=== PATIENT | male | born 1955 | race Two or more races ===

== ENCOUNTER 2024-10-23 05:56 | Day surgery (SDC) | payer MEDICARE, BC, SELFPAY ==
[2024-09-27 11:32] LABS: Hematocrit 41.3 % (39.0-52.0); Hemoglobin 13.9 g/dL (13.0-18.0); Mean Corp Hgb Conc. 33.7 g/dL (33.0-37.0); Mean Corpuscular Hgb 29.3 pg (27.0-31.0); Mean Corpuscular Volume 86.9 fL (80.0-94.0); Mean Platelet Volume 10.4 fL (7.4-10.4); Platelet Count 167 10^3/uL (130-400); Red Blood Cell Count 4.75 10^6/uL (4.70-6.10); Red Cell Dist. Width 14.5 % (11.5-14.5); White Blood Cell Count 4.7 10^3/uL (4.8-10.8)
[2024-09-27 11:50] LABS: ALT (SGPT) 29 U/L (0-50); AST (SGOT) 32 U/L (17-59); Albumin 4.6 g/dl (3.5-5.0); Alkaline Phosphatase 69 U/L (38-126); Blood Urea Nitrogen 21 mg/dl (9-20); Calcium 9.9 mg/dl (8.4-10.2); Carbon Dioxide 29 mmol/L (22-30); Chloride 100 mmol/L (98-107); Glucose 84 mg/dl (70-99); Potassium 4.2 mmol/L (3.5-5.1); Sodium 138 mmol/L (135-145); Total Bilirubin 1.7 mg/dl (0.2-1.3); Total Protein 7.6 g/dl (6.3-8.2); eGFR > 60.00
[2024-09-27 13:04] LABS: Glycohemoglobin (HgbA1c) 5.5 % (4.0-5.6)
[2024-09-27 14:18] VITALS: BMI 31.0
--- NOTE | 2024-10-10 11:37 | VNURNOTE ---
Patient is scheduled for an elective R TKR on 10/23/24- he is a same day patient with Dr Francois. Spoke with patient prior to surgery. Introduced role of [facility] Liaison. Patient reports that he lives with his in a MULTI story home.
There are 6 steps to enter.
He has an ice gel pack, cane and rolling walker.
PCP is Dr Miky Alberto
Discussed [facility] joint protocol and post surgical plans.
Reviewed that he will have [facility] services initially and will then start outpatient PT.
Patient selects [facility] for his home care needs and will go to ' Ortho on [address]' for outpatient PT. Scheduled for 10/26
Patient is in agreement with plan and states that his will be home with him. Advised to bring RW with him day of surgery. Pet policy reviewed, he has a small dog at home. [facility] referral placed in [facility].
Plan: [facility] per [facility] joint protocol 10/23 then outpt PT on 10/26
[2024-10-17 10:39] VITALS: BMI 31.0
[2024-10-23] VITALS (10 sets, daily range): BP systolic 106–158; BP diastolic 74–93; PULSE 72; O2SAT 98
[2024-10-23] MEDS: CELEBREX 200 MG PO (06:21)
[2024-10-23] MEDS: TYLENOL 650 MG PO (06:21)
[2024-10-23] MEDS: NORMOSOL-R/PLASMALYTE-A 1000 IV (06:38)
[2024-10-23] MEDS: BACTROBAN NASAL 1 GRAM NASAL (06:40)
--- NOTE | 2024-10-23 06:50 | W.DS.TRANS ---
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
-
Discharge Instructions:
Sleep Apnea Risk Intermediate
Discharge Diagnosis/Procedures R TKA 10/23/24
Diet As tolerated
Activity With Walker
Driving Restrictions No driving
Bathing Restrictions OK to Shower
Other Services PT
Instructions:
Stand-Alone Forms: [facility] Total Hip and Knee D/C
Changes to Home Medications: Yes
Discharge Medications:
DC Medications w/original date entered in [employer]
atorvastatin 10 mg tablet 10 mg PO DAILY 09/26/24
losartan 50 mg-hydrochlorothiazide 12.5 mg tablet 1 tab PO DAILY 09/26/24
omeprazole 40 mg capsule,delayed release 40 mg PO DAILY 09/26/24
timolol maleate 0.5 % eye drops 1 drp LEFT EYE BID 09/26/24
celecoxib 200 mg capsule (Celebrex) 200 mg PO DAILY #14 caps 09/27/24
dexamethasone 4 mg tablet 4 mg PO BID Anti-inflammatory #7 tabs 09/27/24
mupirocin 2 % topical ointment 1 applic intranasal BID #1 tube 09/27/24
ondansetron HCl 4 mg tablet 4 mg PO Q6H PRN nausea and vomiting #30 tabs 09/27/24
oxycodone 5 mg tablet 5 - 10 mg (1 - 2 x 5 mg) PO Q6H PRN moderate-severe pain #30 tabs 09/27/24
acetaminophen 325 mg tablet (Tylenol) 650 mg (2 x 325 mg) PO QID #1 tab 10/23/24
aspirin 325 mg tablet 325 mg PO DAILY blood clot prevention #1 tab 10/23/24
docusate sodium 100 mg capsule (Colace) 100 mg PO BID stool softner #1 cap 10/23/24
magnesium hydroxide 400 mg/5 mL oral suspension (Milk of Magnesia) 30 ml PO HS PRN Constipation #1 mL 10/23/24
sennosides 8.6 mg tablet (Senokot) 17.2 mg (2 x 8.6 mg) PO BID laxative #2 tabs 10/23/24
Home Medication Changes
celecoxib 200 mg capsule (Celebrex) 200 mg PO DAILY #14 caps 09/27/24
dexamethasone 4 mg tablet 4 mg PO BID Anti-inflammatory #7 tabs 09/27/24
mupirocin 2 % topical ointment 1 applic intranasal BID #1 tube 09/27/24
ondansetron HCl 4 mg tablet 4 mg PO Q6H PRN nausea and vomiting #30 tabs 09/27/24
oxycodone 5 mg tablet 5 - 10 mg (1 - 2 x 5 mg) PO Q6H PRN moderate-severe pain #30 tabs 09/27/24
acetaminophen 325 mg tablet (Tylenol) 650 mg (2 x 325 mg) PO QID #1 tab 10/23/24
aspirin 325 mg tablet 325 mg PO DAILY blood clot prevention #1 tab 10/23/24
docusate sodium 100 mg capsule (Colace) 100 mg PO BID stool softner #1 cap 10/23/24
magnesium hydroxide 400 mg/5 mL oral suspension (Milk of Magnesia) 30 ml PO HS PRN Constipation #1 mL 10/23/24
sennosides 8.6 mg tablet (Senokot) 17.2 mg (2 x 8.6 mg) PO BID laxative #2 tabs 10/23/24
Pending Results: No
[2024-10-23] MEDS: ROXICODONE 5 MG PO (10:59)
[2024-10-23] MEDS: ANCEF 5 IV (11:00)
== END 2024-10-23 11:55 | disposition home or self-care (01) ==
LOC: SDS 05:56
PROVIDERS: ATTENDING PHYSICIAN Specialist; FAMILY PHYSICIAN Family Medicine; OTHER PHYSICIAN Physician Assistant
DX: M17.11 Unilateral primary osteoarthritis, right knee (principal); G62.9 Polyneuropathy, unspecified; E66.9 Obesity, unspecified; Z68.31 Body mass index [BMI] 31.0-31.9, adult
CPT/HCPCS: 27447; 36415; 73560; 80053; 83036; 85027; 87070; 93005; 97116; 97162; C1713; C1776

== ENCOUNTER → 2024-12-08 13:16 | Outpatient (REF) | payer MEDICARE, BC, SELFPAY ==
[2024-12-08 14:13] LABS: % Basophils 0.6 % (0-2); % Eosinophils 2.5 % (0-6); % Immature Granulocytes 0.2 % (0-0.5); % Lymphocytes 31.7 % (20.5-51.1); % Monocytes 9.3 % (1.7-9.3); % Neutrophils 55.7 % (42.2-75.2); Absolute Eosinophils 0.1 10^3/uL (0-0.7); Absolute Lymphocytes 1.6 10^3/uL (1.2-3.4); Absolute Monocytes 0.5 10^3/uL (0.1-0.6); Absolute Neutrophils 2.9 10^3/uL (1.4-6.5); Hematocrit 38.3 % (39.0-52.0); Hemoglobin 13.3 g/dL (13.0-18.0); Mean Corp Hgb Conc. 34.7 g/dL (33.0-37.0); Mean Corpuscular Hgb 29.8 pg (27.0-31.0); Mean Corpuscular Volume 85.9 fL (80.0-94.0); Mean Platelet Volume 9.9 fL (7.4-10.4); Nucleated Red Blood Cells % 0 % (-); Platelet Count 184 10^3/uL (130-400); Red Blood Cell Count 4.46 10^6/uL (4.70-6.10); Red Cell Dist. Width 12.8 % (11.5-14.5); White Blood Cell Count 5.2 10^3/uL (4.8-10.8)
[2024-12-08 14:35] LABS: Blood Urea Nitrogen 25 mg/dl (9-20); Calcium 9.6 mg/dl (8.4-10.2); Carbon Dioxide 24 mmol/L (22-30); Chloride 109 mmol/L (98-107); Glucose 93 mg/dl (70-99); Potassium 3.9 mmol/L (3.5-5.1); Sodium 141 mmol/L (135-145); eGFR > 60.00
== END ==
LOC: REG 13:16
PROVIDERS: ATTENDING PHYSICIAN Specialist; FAMILY PHYSICIAN Family Medicine
DX: Z01.818 Encounter for other preprocedural examination (principal)
CPT/HCPCS: 36415; 80048; 85025